=== PATIENT | female | born 1980 | race Caucasian/White ===

== ENCOUNTER → 2019-06-09 | Emergency (ER) | payer OTHER ==
[~2019-06-09] VITALS: Ht 160 cm; Wt 72.6 kg
== END | disposition home or self-care (01) ==
LOC: ER 21:25
DX: G44.209 Tension-type headache, unspecified, not intractable (principal); R42 Dizziness and giddiness

== ENCOUNTER → 2021-04-07 11:04 | Outpatient (CLI) | payer OTHER | END | disposition home or self-care (01) | LOC: LAB 11:04 | PROVIDERS: ATTEND General Practice | DX: R05 Cough (principal); Z03.818 Encounter for observation for suspected exposure to other biological agents ruled out; R06.02 Shortness of breath; Z20.828 Contact with and (suspected) exposure to other viral communicable diseases ==

== ENCOUNTER 2021-05-02 13:00 | Outpatient (CLI) | payer OTHER | END 2021-05-02 13:30 | disposition home or self-care (01) | LOC: PPH VACUNA 13:00 | PROVIDERS: ATTEND Emergency Medicine Pediatric Emergency Medicine | DX: Z23 Encounter for immunization (principal) ==

== ENCOUNTER → 2021-07-09 | Emergency (ER) | payer OTHER ==
[~2021-07-09] VITALS: Ht 160 cm; Wt 74.8 kg
== END | disposition home or self-care (01) ==
LOC: ER 11:24
DX: R42 Dizziness and giddiness (principal)